=== PATIENT | male | born 1950 | race African-American/Black ===

== ENCOUNTER 2017-09-03 08:47 | Emergency (ER) | payer MEDICARE, SELFPAY ==
--- NOTE | 2017-09-03 10:33 | RAD REPORT ---
EXAM DESCRIPTION: CT - Head C Spine Mpr Wo Con - 09/03/2017 10:02 am CLINICAL HISTORY: Head and neck injury status post fall. Head and neck pain COMPARISON: None. TECHNIQUE: Computed axial tomography of the head and cervical spine was obtained. Sagittal and coronal reconstruction was performed. All CT scans are performed using dose optimization technique as appropriate and may include automated exposure control or mA/KV adjustment according to patient size. FINDINGS: An intracranial bleed is not seen. The ventricles are normal in caliber. 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 A minimally displaced fracture involves the left lateral mass of C2 extending into the left transvers e foramen. There is a fracture fragment which is displaced about 2 millimeters into the left transver se foramen. A minimally displaced fracture involves the left inferior facet of C2. An additional fracture involves the right lateral mass of C2. Extending into the right pedicle and ri ght transverse foramen. The right transverse process of C2 is avulsed. An additional fracture involves the left transverse foramen of C3. No dislocation is noted. IMPRESSION: No acute intracranial abnormality is seen. Type 3 fracture involving right and left aspects of the body of C2. The fractures involve the right a nd left transverse foramen. Mild displacement of a fracture fragment into the left transverse foramen is seen. Fracture extends into right pedicle Nondisplaced fracture involving the left transverse foramen of C3 The exam was discussed with Doctor Gandhi in the Emergency Room at approximately 10:10 a.m. August [id number]
--- NOTE | 2017-09-03 10:34 | EDPHYS ---
Physician Documentation [facility] Name: Abhi Negro Age: 67 yrs Sex: Male : 1950 Arrival Date: 09/03/2017 Time: 08:52 Bed 27 Private MD: Milly Greenfield H ED Physician Khalif Gandhi HPI: 09/03 10:28 This 67 yrs old Black Male presents to ER via Wheelchair with complaints of Fall john Injury, Headache. 10:28 Details of fall: The patient fell from an upright position. Onset: The symptoms/episode john began/occurred 2 day(s) ago. Associated injuries: The patient sustained injury to the head, neck injury, decreased range of motion, pain, pain with movement, tenderness. Severity of symptoms: At their worst the symptoms were mild, moderate, in the emergency department the symptoms are unchanged. The patient has not experienced similar symptoms in the past. Historical: - Allergies: 09:18 NKA; iw - Home Meds: 11:55 verapamil 120 mg Oral TbER 1 tab 2 times per day [Active]; Folic Acid Oral [Active]; dm5 Vitamin D Oral [Active]; gabapentin oral oral [Active]; - PMHx: 09:18 Hypertension; Hyperlipidemia; iw - PSHx: 09:18 None; iw - Immunization history: Last tetanus immunization: - up to date. ROS: 10:29 Constitutional: Negative for fever, chills, and weight loss, Eyes: Negative for injury, john pain, redness, and discharge, ENT: Negative for injury, pain, and discharge, Cardiovascular: Negative for chest pain, palpitations, and edema, Respiratory: Negative for shortness of breath, cough, wheezing, and pleuritic chest pain, Abdomen/GI: Negative for abdominal pain, nausea, vomiting, diarrhea, and constipation, Back: Negative for injury and pain, : Negative for injury, bleeding, discharge, and swelling, MS/Extremity: Negative for injury and deformity, Skin: Negative for injury, rash, and discoloration, Neuro: Negative for headache, weakness, numbness, tingling, and seizure, Psych: Negative for depression, anxiety, suicide ideation, homicidal ideation, and hallucinations, Allergy/Immunology: Negative for hives, rash, and allergies, Endocrine: Negative for neck swelling, polydipsia, polyuria, polyphagia, and marked weight changes, Hematologic/Lymphatic: Negative for swollen nodes, abnormal bleeding, and unusual bruising. 10:29 Neck: Positive for pain with movement, pain at rest, stiffness, tenderness, of the left mid cervical area, right mid cervical area, left trapezius, lower cervical area and right trapezius. Exam: 10:29 Constitutional: This is a well developed, well nourished patient who is awake, alert, john and in no acute distress. Head/Face: Normocephalic, atraumatic. Eyes: Pupils equal round and reactive to light, extra-ocular motions intact. Lids and lashes normal. Conjunctiva and sclera are non-icteric and not injected. Cornea within normal limits. Periorbital areas with no swelling, redness, or edema. ENT: Nares patent. No nasal discharge, no septal abnormalities noted. Tympanic membranes are normal and external auditory canals are clear. Oropharynx with no redness, swelling, or masses, exudates, or evidence of obstruction, uvula midline. Mucous membranes moist. Chest/axilla: Normal chest wall appearance and motion. Nontender with no deformity. No lesions are appreciated. Cardiovascular: Regular rate and rhythm with a normal S1 and S2. No gallops, murmurs, or rubs. Normal PMI, no JVD. No pulse deficits. Respiratory: Lungs have equal breath sounds bilaterally, clear to auscultation and percussion. No rales, rhonchi or wheezes noted. No increased work of breathing, no retractions or nasal flaring. Abdomen/GI: Soft, non-tender, with normal bowel sounds. No distension or tympany. No guarding or rebound. No evidence of tenderness throughout. Back: No spinal tenderness. No costovertebral tenderness. Full range of motion. Male : Normal genitalia with no discharge or lesions. Skin: Warm, dry with normal turgor. Normal color with no rashes, no lesions, and no evidence of cellulitis. MS/ Extremity: Pulses equal, no cyanosis. Neurovascular intact. Full, normal range of motion. Neuro: Awake and alert, GCS 15, oriented to person, place, time, and situation. Cranial nerves II-XII grossly intact. Motor strength 5/5 in all extremities. Sensory grossly intact. Cerebellar exam normal. Normal gait. Psych: Awake, alert, with orientation to person, place and time. Behavior, mood, and affect are within normal limits. 10:29 Neck: C-spine: C-collar placed in ED, Thyroid: appears normal, Trachea: is midline with no obvious abnormalities, ROM/movement: pain, limited range of motion, Lymph nodes: no appreciated lymphadenopathy. Vital Signs: 09:18 BP 162 / 97; Pulse 98; Resp 16; Temp 98.2; Pulse Ox 98% on R/A; Weight 68.04 kg; Height iw 6 ft. 1 in. (185.42 cm); Pain 10/10; 10:46 BP 180 / 101; Pulse 79; Resp 18; Temp 98.2; Pulse Ox 98% ; dm5 11:00 BP 159 / 114; Pulse 86; Resp 15; Pulse Ox 98% ; dm5 11:15 BP 168 / 112; Pulse 80; Resp 18; Pulse Ox 98% on R/A; dm5 11:45 BP 152 / 108; Pulse 73; Resp 13; Temp 98; Pulse Ox 98% on R/A; dm5 11:59 BP 165 / 107; Pulse 76; Resp 17; Temp 98.3(O); Pulse Ox 99% ; dm5 09:18 Body Mass Index 19.79 (68.04 kg, 185.42 cm) iw 10:46 physician notified of BP, no additional orders received. dm5 Cornell Coma Score: 09:18 Eye Response: spontaneous(4). Verbal Response: oriented(5). Motor Response: obeys iw commands(6). Total: 15. Trauma Score (Adult): 09:18 Eye Response: spontaneous(1); Verbal Response: oriented(1); Motor Response: obeys iw commands(2); Systolic BP: > 89 mm Hg(4); Respiratory Rate: 10 to 29 per min(4); Cornell Score: 15; Trauma Score: 12 MDM: 10:13 Patient medically screened. [facility] 10:34 Data reviewed: vital signs, nurses notes, lab test result(s), EKG, radiologic studies, [facility] CT scan, plain films. 09/03 10:13 Order name: Basic Metabolic Panel; Complete Time: 12:37 [facility] 09/03 10:13 Order name: BNP; Complete Time: 12:37 [facility] 09/03 10:13 Order name: CBC with Diff; Complete Time: 11:10 09/03 10:13 Order name: Ckmb; Complete Time: 12:37 09/03 10:13 Order name: CPK; Complete Time: 12:37 09/03 10:13 Order name: LFT's; Complete Time: 12:37 09/03 09:20 Order name: CT Head C Spine; Complete Time: 11:10 09/03 10:13 Order name: Magnesium; Complete Time: 12:37 09/03 10:13 Order name: PT-INR; Complete Time: 12:37 09/03 10:13 Order name: Ptt, Activated; Complete Time: 12:37 09/03 10:13 Order name: Troponin (emerg Dept Use Only); Complete Time: 12:37 09/03 10:13 Order name: XRAY Chest (1 view); Complete Time: 11:10 09/03 10:13 Order name: EKG; Complete Time: 10:14 09/03 10:13 Order name: Cardiac monitoring; Complete Time: 11:16 09/03 10:13 Order name: EKG - Nurse/Tech; Complete Time: 11:16 09/03 10:13 Order name: IV Saline Lock; Complete Time: 11:09/03 10:13 Order name: Labs collected and sent; Complete Time: 11:09/03 10:13 Order name: O2 Per Protocol; Complete Time: 11:09/03 10:13 Order name: O2 Sat Monitoring; Complete Time: 11:09/03 10:14 Order name: Cervical Collar; Complete Time: 10:54 [facility] Administered Medications: 10:47 Drug: Zofran 4 mg Route: IVP; Site: left antecubital; aj1 10:50 Drug: fentaNYL (PF) 25 mcg Route: IVP; Site: left antecubital; aj1 10:54 Drug: fentaNYL (PF) 25 mcg Route: IVP; Site: left antecubital; aj1 10:59 Drug: NS 0.9% 1000 ml Route: IV; Rate: 125 ml/hr; Site: left antecubital; dm5 12:43 CANCELLED (pt on stretcher for transport): Magnesium Sulfate 1 grams IVPB once over 1 dm5 hrs Disposition: 09/03/17 10:33 Transfer ordered to [facility]. Diagnosis are Fall due to bumping against object, Strain of muscle, fascia and tendon at neck level, Fracture of second cervical vertebra - dens 3,left extends to left transverse foramen, Essential (primary) hypertension, Hypomagnesemia. - Reason for transfer: Higher level of care. - Accepting physician is neuro surgery at [facility]. - Condition is Stable. - Problem is new. - Symptoms are unchanged. Signatures: Dispatcher [employer] Janae Robertson RN RN [email or web address] Jennifer Grimaldo RN RN dm5 Khalif Gandhi MD MD cha Williams, Irene, RN RN iw Corrections: (The following items were deleted from the chart) 12:43 12:38 Magnesium Sulfate 1 grams IVPB once over 1 hrs ordered. john myrick
--- NOTE | 2017-09-03 10:34 | ER ---
Nurse's Notes [facility] Name: Abhi Negro Age: 67 yrs Sex: Male : 1950 Arrival Date: 09/03/2017 Time: 08:52 Bed 27 Private MD: Milly Greenfield H Diagnosis: Fall due to bumping against object;Strain of muscle, fascia and tendon at neck level;Fracture of second cervical vertebra-dens 3,left extends to left transverse foramen;Essential (primary) hypertension;Hypomagnesemia Presentation: 09/03 09:15 Presenting complaint: Patient states: fell 2 days from standing position, hit head on car rim and concrete, blacked out for a second, has been dealing with vertigo, still having pain to back of head and right side of head. Care prior to arrival: None. Mechanism of Injury: Fall from standing position. Trauma event details: Injury occurred in the [facility]. 09:15 Acuity: VERNA 3 iw 09:15 Method Of Arrival: Wheelchair iw 09:15 Transition of care: patient was not received from another setting of care. Onset of iw symptoms was September 01, 2017. Initial Sepsis Screen: Does the patient meet any 2 criteria? No. Patient's initial sepsis screen is negative. Does the patient have a suspected source of infection? No. Patient's initial sepsis screen is negative. Trauma Activation: Not Applicable Physician: ED Physician; Name: ; Notified At: ; Arrived At: Physician: General Surgeon; Name: ; Notified At: ; Arrived At: Physician: Radiology; Name: ; Notified At: ; Arrived At: Physician: Respiratory; Name: ; Notified At: ; Arrived At: Physician: Lab; Name: ; Notified At: ; Arrived At: Historical: - Allergies: 09:18 NKA; iw - Home Meds: 11:55 verapamil 120 mg Oral TbER 1 tab 2 times per day [Active]; Folic Acid Oral [Active]; dm5 Vitamin D Oral [Active]; gabapentin oral oral [Active]; - PMHx: 09:18 Hypertension; Hyperlipidemia; iw - PSHx: :18 None; iw - Immunization history: Last tetanus immunization: - up to date. Screenin:18 Abuse screen: Denies threats or abuse. Denies injuries from another. iw 10:27 Nutritional screening: No deficits noted. Tuberculosis screening: No symptoms or risk dm5 factors identified. Fall risk At risk due to injury, prior history of falls. Primary Survey: 10:20 A: Airway: patent, No supplemental oxygen in use on arrival. Breathing/Chest: dm5 Respiratory pattern: regular, Respiratory effort: spontaneous, unlabored, Breath sounds: clear, bilaterally. Chest inspection: symmetrical rise and fall of the chest. Circulation: Cardiac rhythm: sinus rhythm Heart tones present. Pulses: palpable right radial artery and left radial artery. Skin color: pink, Skin temperature: warm. Disability Alert. 11:18 Reassessment Airway Airway Patent Breathing/Chest Respiratory pattern Regular dm5 Respiratory effort Spontaneous Unlabored Breath sounds Clear Chest inspection Symmetrical Circulation Heart rhythm Sinus rhythm Heart tones Present Pulses Palpable Color [place] Disability Alert. Secondary Survey: 10:20 HEENT: No deficits noted. Gastrointestinal: No deficits noted. : No deficits noted. dm5 Musculoskeletal: Circulation, motion, and sensation intact. Capillary refill < 3 seconds, Range of motion: intact in all extremities, Reports pain in neck. Assessment: 10:20 General: Appears in no apparent distress. Behavior is calm, cooperative. Pain: dm5 Complains of pain in back of neck Pain currently is 9 out of 10 on a pain scale. Pain began 2-3 days ago. Aggravated by repositioning. Neuro: Level of Consciousness is awake, alert, obeys commands, Oriented to person, place, time. Respiratory: Airway is patent Respiratory effort is even, unlabored, relaxed, Respiratory pattern is regular, symmetrical. Derm: Skin is pink, warm \T\ dry. Injury Description: fall. 11:18 Reassessment: Patient appears in no apparent distress at this time. No changes from dm5 previously documented assessment. Patient and/or family updated on plan of care and expected duration. Pain level reassessed. Patient is alert, oriented x 3, equal unlabored respirations, skin warm/dry/pink. 12:01 Reassessment: report given to Christine Portillo RN at [facility]. [facility] Vital Signs: 09:18 BP 162 / 97; Pulse 98; Resp 16; Temp 98.2; Pulse Ox 98% on R/A; Weight 68.04 kg; Height iw 6 ft. 1 in. (185.42 cm); Pain 10/10; 10:46 BP 180 / 101; Pulse 79; Resp 18; Temp 98.2; Pulse Ox 98% ; dm5 11:00 BP 159 / 114; Pulse 86; Resp 15; Pulse Ox 98% ; dm5 11:15 BP 168 / 112; Pulse 80; Resp 18; Pulse Ox 98% on R/A; dm5 11:45 BP 152 / 108; Pulse 73; Resp 13; Temp 98; Pulse Ox 98% on R/A; dm5 11:59 BP 165 / 107; Pulse 76; Resp 17; Temp 98.3(O); Pulse Ox 99% ; dm5 09:18 Body Mass Index 19.79 (68.04 kg, 185.42 cm) iw 10:46 physician notified of BP, no additional orders received. dm5 Alphonso Coma Score: 09:18 Eye Response: spontaneous(4). Verbal Response: oriented(5). Motor Response: obeys iw commands(6). Total: 15. Trauma Score (Adult): 09:18 Eye Response: spontaneous(1); Verbal Response: oriented(1); Motor Response: obeys iw commands(2); Systolic BP: > 89 mm Hg(4); Respiratory Rate: 10 to 29 per min(4); [place] Score: 15; Trauma Score: 12 ED Course: 08:52 Patient arrived in ED. rg4 08:52 Milly Greenfield DO is Private Physician. rg4 09:17 Triage completed. iw 09:[address] via wheelchair. sj 10:02 CT Head C Spine In Process Unspecified. EDMS 10:02 CT completed. Patient tolerated procedure well. Patient moved to CT via wheelchair. jg1 Patient moved back from CT. 10:13 Khalif Gandhi MD is Attending Physician. john 10:15 No provider procedures requiring assistance completed. Rigid cervical collar applied dm5 and checked by physician. 10:16 Jessica Nicholson, RN is Primary Nurse. ak1 10:27 Patient maintains SpO2 saturation greater than 95% on room air. Thermoregulation: warm dm5 blanket given to patient. 10:27 Inserted saline lock: 20 gauge in left antecubital area, using aseptic technique. Blood dm5 collected. 10:27 Patient has correct armband on for positive identification. Side rails up X2. dm5 10:40 X-ray completed. Portable x-ray completed in exam room. Patient tolerated procedure ml well. 10:42 XRAY Chest (1 view) In Process Unspecified. EDMS 10:53 EKG done, by rehab tech. reviewed by Khalif Gandhi MD. [facility] 11:44 Jennifer Grimaldo, RN is Primary Nurse. dm5 Administered Medications: 10:47 Drug: Zofran 4 mg Route: IVP; Site: left antecubital; aj1 10:50 Drug: fentaNYL (PF) 25 mcg Route: IVP; Site: left antecubital; aj1 10:54 Drug: fentaNYL (PF) 25 mcg Route: IVP; Site: left antecubital; aj1 10:59 Drug: NS 0.9% 1000 ml Route: IV; Rate: 125 ml/hr; Site: left antecubital; dm5 12:43 CANCELLED (pt on stretcher for transport): Magnesium Sulfate 1 grams IVPB once over 1 dm5 hrs Intake: 11:45 PO: 0ml; Total: 0ml. dm5 Output: 11:45 Urine: 0ml; Total: 0ml. dm5 Outcome: 10:33 ER care complete, transfer ordered by . john 12:44 Patient left the ED. dm5 Signatures: Dispatcher [employer] EDMS Janae David, RN RN aj1 Jennifer Grimaldo, RN RN Khalif Berry MD MD cha Garcia, Kiara Mcclure, Sweta Cardenas, RN Kallie Ritchie Amanda, equipment technician EKG Tat1 Jessica Nicholson, RN RN ak1 Lala Martin rg4 Corrections: (The following items were deleted from the chart) 09:19 09:15 Presenting complaint: Patient states: fell 2 days from standing position, hit iw head on car rim and concrete, blacked out for a second, has been dealing with vertigo iw 11:52 10:46 BP 180 / 101; Pulse 79bpm; Resp 18bpm; Pulse Ox 98%; Temp 98.2F; dm5 dm5
[2017-09-03] MEDS ORDERED: FENTANYL CITR 100 MCG/2 ML ONE (10:40)
[2017-09-03] MEDS ORDERED: ONDANSETRON 4 MG/2 ML VIAL ONE ×2 (10:40→12:37)
[2017-09-03] MEDS ORDERED: NA CHLORIDE 0.9% 1,000 ML ONE (10:55)
[2017-09-03 10:59] LABS: Absolute Monocytes 0.5 K/uL (0.1-1.3); Absolute Neutrophil 3.5 K/uL (1.8-8.0); Basophils % 0.6 % (0-1.3); Eosinophils % 1.1 % (0-4.4); Hematocrit 42.9 % (39.6-49.0); Lymphocytes % 20.6 % (15.3-44.8); MCH 33.8 pg (27.0-35.0); MCV 98.1 fL (80-100); MPV 7.4 fL (7.6-11.3); Monocytes % 9.4 % (3.3-12.3); RBC Red Blood Cell Count 4.37 M/uL (4.33-5.43)
--- NOTE | 2017-09-03 11:08 | RAD REPORT ---
EXAM DESCRIPTION: RAD - Chest Single View - 09/03/2017 11:02 am CLINICAL HISTORY: Fall, chest pain, cough COMPARISON: September 2016 TECHNIQUE: AP portable chest image was obtained 1032 hours . FINDINGS: No mass, pulmonary contusion or acute lung parenchymal process. No focal infiltrate or sukhdeep lure. Trachea is midline. Heart and vasculature are normal. No measurable pleural effusion and no pne umothorax. No gross bony abnormality seen. No acute aortic findings suspected. IMPRESSION: No acute cardiopulmonary process. No suspicious change from comparison.
[2017-09-03 11:12] LABS: Protime INR 1.01
[2017-09-03 11:13] LABS: Bicarbonate 27 mEq/L (21-31); Glucose Level 102 mg/dL (65-120); Potassium 3.7 mEq/L (3.6-5.0); Sodium Level 137 mEq/L (135-145)
[2017-09-03 11:19] LABS: ALT/SGPT 17 IU/L (10-60); AST/SGOT 34 IU/L (10-42); Albumin 4.1 g/dL (3.2-5.5); Alkaline Phosphatase 86 IU/L (42-121); BUN Blood Urea Nitrogen 11 mg/dL (6-20); Bilirubin Direct 0.2 mg/dL (0-0.2); Bilirubin Total 1.5 mg/dL (0.3-1.2); Creatine Phosphokinase 316 IU/L (22-269); Protein, Total 8.8 g/dL (6.0-8.3)
[2017-09-03 11:34] LABS: Magnesium 1.7 mg/dL (1.8-2.5)
[2017-09-03] MEDS ORDERED: MORPHINE 4 MG/ML SYR ONE (12:37)
[2017-09-03 13:05] VITALS: BP 165/107; TEMP 98.3; O2SAT 99
--- NOTE | 2017-09-03 13:53 | EKG ---
Test Date: 2017-09-03 Test Time: 10:49:52 Hoop Coiling Machine Operator: LUAN MEASUREMENT RESULTS: Intervals: Rate: 80 OR: 146 QRSD: 80 QT: 414 QTc: 477 [place]: P: 56 OR: 146 QRS: 2 T: 53 INTERPRETIVE STATEMENTS: Normal sinus rhythm Normal ECG Compared to ECG 09/25/2016 09:20:40 Prolonged QT interval no longer present Electronically Signed On 09-03-17 13:52:25 CDT by Navid Wynn
== END 2017-09-03 12:44 | disposition short-term general hospital (02) ==
LOC: ER 08:47
DX: S12.120A Other displaced dens fracture, initial encounter for closed fracture (principal); S16.1XXA Strain of muscle, fascia and tendon at neck level, initial encounter; I10 Essential (primary) hypertension; E83.42 Hypomagnesemia; E78.5 Hyperlipidemia, unspecified; W18.00XA Striking against unspecified object with subsequent fall, initial encounter; Y93.9 Activity, unspecified; Y92.9 Unspecified place or not applicable
CPT/HCPCS: 36415; 70450; 71045; 72125; 80048; 80076; 82550; 82553; 83735; 83880; 84484; 85025; 85610; 85730; 93005; J2405 ×2; J3010; J7030; 96374; 96375; 99285